=== PATIENT | male | born 1965 | race Caucasian/White ===

== ENCOUNTER → 2017-02-19 | Outpatient (CLI) | payer OTHER, MEDICAID ==
--- NOTE | 2017-02-19 15:20 | CPEKG ---
Heart Rate: 70 RR Interval: 857 P-R Interval: 144 QRSD Interval: 108 QT Interval: 396 QTC Interval: 428 P [place]: 19 QRS [place]: 1 T Wave [place]: -10 EKG Severity - NORMAL ECG - EKG Impression: SINUS RHYTHM EKG Impression: COMPARED WITH 05/07/2015, AXIS HAS SHIFTED RIGHTWARD Electronically Signed By: Bobbi Pardo 19-Feb-2017 16:48:52
== END ==
LOC: FCP 14:54
PROVIDERS: ATTEND Orthopaedic Surgery Foot and Ankle Surgery
DX: Z01.810 Encounter for preprocedural cardiovascular examination (principal)